=== PATIENT | female | born 1965 | race Caucasian/White ===

== ENCOUNTER → 2019-09-26 | Outpatient (CLI) | payer OTHER, SELFPAY ==
[2019-09-24 11:40] VITALS: BMI 21.9
[2019-10-01 12:11] LABS: Dopamine, Pl <30 pg/mL (0-48); Epinephrine, Pl 37 pg/mL (0-62); Norepinephrine, Pl 336 pg/mL (0-874)
[2019-10-01 13:41] LABS: Aldosterone, Serum 6.9 ng/dL (0.0-30.0); Renin, Plasma 0.249 ng/mL/hr (0.167-5.380)
== END | disposition home or self-care (01) ==
PROVIDERS: Family Provider Family Medicine; PCP Family Medicine; Referring Provider Internal Medicine Cardiovascular Disease; Visit Provider Internal Medicine Cardiovascular Disease
DX: I10 Essential (primary) hypertension (principal)
CPT/HCPCS: 36415; 82088; 82384; 84244

== ENCOUNTER → 2019-10-05 12:45 | Outpatient (CLI) | payer OTHER, SELFPAY ==
[2019-09-24 11:40] VITALS: BMI 21.9
--- NOTE | 2019-10-05 12:47 | ECHOD_ITS ---
Reason For Study: HTN Procedure This was a 2D Doppler, Color Flow transthoracic echocardiogram. Exam performed in department. Left Ventricle Normal LV size. Left ventricular systolic function is normal. The estimated ejection fraction is 65 %. No regional wall motion abnormalities noted. Right Ventricle Normal RV size. Normal systolic function. Atria Normal left atrium. Normal right atrium. Mitral Valve Normal mitral valve. Tricuspid Valve Normal tricuspid valve. Aortic Valve Normal aortic valve. Trisinus/trileaflet aortic valve. Pulmonic Valve Normal pulmonic valve. Great Vessels Normal aortic root. The pulmonary artery is normal size. Normal inferior vena cava. Pericardium/Pleural No pericardial effusion. MMode/2D Measurements & Calculations LVIDd: 4.4 cm IVSd: 1.1 cm Ao root diam: 3.3 cm LVIDs: 1.6 cm LVPWd: 1.2 cm LA dimension: 3.0 cm RVDd: 3.5 cm FS: 63.3 % LAV(MOD-bp): 50.0 ml LA A4 area: 16.8 cm2 RA A4 area: 14.0 cm2 LAV(MOD-bp) Indexed: 31.1 ml/m2 LAV(MOD-sp2): 56.2 ml LAV(MOD-sp4): 44.7 ml Time Measurements MV dec time: 0.20 sec Doppler Measurements & Calculations MV E max rajendra: 84.1 cm/sec Lat Peak E' Rajendra: 10.2 cm/sec Med Peak E' Rajendra: 8.1 cm/sec MV A max rajendra: 49.6 cm/sec E/E' lat: 8.2 E/E' med: 10.4 MV E/A: 1.7 MV V2 max: 82.0 cm/sec MV P1/2t max rajendra: 82.0 cm/sec Ao V2 max: 127.5 cm/sec MV max P.7 mmHg MV P1/2t: 98.6 msec Ao max P.5 mmHg MV V2 mean: 35.1 cm/sec MV dec slope: 243.6 cm/sec2 MV mean P.62 mmHg MVA(P1/2t): 2.2 cm2 MV V2 VTI: 28.3 cm LV V1 max: 124.0 cm/sec PA V2 max: 90.5 cm/sec TR max rajendra: 238.4 cm/sec LV V1 max P.2 mmHg TR max P.7 mmHg Interpretation Summary Normal LV size. Left ventricular systolic function is normal. The estimated ejection fraction is 65 %. Structurally normal valves. Ordering Physician: Kevin Saravia Referring Physician: Kevin Saravia Performed By: Cresencio Whitney RCS
--- NOTE | 2019-10-05 12:47 | CT_ITS ---
STUDY: CT ABDOMEN AND PELVIS WITH CONTRAST REASON FOR EXAM: Female, 54 years old. Severe hypertension. RADIATION DOSAGE (If Supplied By Facility): CTDIvol = ( 15.08 ) mGy, DLP = ( 460.73 ) mGycm TECHNIQUE: Transaxial images were obtained from the dome of the diaphragm to the symphysis pubis without oral contrast. IV/Oral Isovue 300 100mL was administered. Sagittal and coronal images were reconstructed. Individualized dose optimization techniques were used for this CT. COMPARISON: None. FINDINGS: The visualized lung bases are unremarkable. The visualized portions of the heart are within normal limits. Small low-attenuation structure within the right liver lobe measuring 6.5 mm, too small to be adequately characterized and compatible with benign process such as cyst or hemangioma in the absence of known neoplasm. Otherwise normal liver. Normal gallbladder and extrahepatic biliary system. Normal spleen. Normal pancreas. Normal bilateral adrenal glands. Small low-attenuation structure within the lower pole of the right kidney measuring 6 mm, too small to be adequately characterize and statistically consistent with a cyst. Otherwise normal right kidney. Similar structure within the lower pole of the left kidney measuring 6 mm, otherwise normal left kidney. There is thickening of the mucosa at the level of the gastric antrum which may indicate gastritis. This is best visualized in the coronal plane. Normal small intestine. There is increased fecal debris within the colon suggestive of constipation. The appendix is visualized and appears normal. Normal abdominal aorta. Normal inferior vena cava. Normal retroperitoneum. Incompletely distended urinary bladder. The uterus is anteverted otherwise unremarkable. Normal abdominal wall. Mild degenerative disease of the spine, otherwise normal osseous structures. CT/Abdomen/Pelvis WITH Contrast IMPRESSION: Small bilateral renal cysts as described above. Small right liver low-attenuation lesion, most compatible with benign process, remainder of abdominal viscera are unremarkable. Constipation. No signs of bowel obstruction or focal inflammatory process throughout the gastrointestinal tract. Electronically Signed: Marzena Lopez MD at 2:48 EST , Service support ,
== END ==
PROVIDERS: Family Provider Family Medicine; PCP Family Medicine; Referring Provider Internal Medicine Cardiovascular Disease; Visit Provider Internal Medicine Cardiovascular Disease
DX: I10 Essential (primary) hypertension (principal)
CPT/HCPCS: 74177; 93306; Q9967

== ENCOUNTER → 2022-07-01 | Outpatient (CLI) | payer OTHER, SELFPAY ==
[2022-07-01 11:50] LABS: AST(SGOT) 11 U/L (15-37); Alanine Aminotransfer ALT/SGPT 15 U/L (13-56); Albumin, Serum 4.1 g/dL (3.2-5.0); Alkaline Phosphatase 75 U/L (45-117); Anion Gap 4 (5-15); BUN 12 mg/dL (7-18); BUN/Creat Ratio 13.9 RATIO (10-20); Bilirubin, Direct 0.11 mg/dL (0.00-0.30); Calcium,Total 9.4 mg/dL (8.5-10.1); Chloride 110 mmol/L (98-107); Cholesterol 188 mg/dL (200); Creatinine, Serum 0.87 mg/dL (0.55-1.02); EST Glomerular Filtration Rate 72 mL/min (>60); Est Glom Filt Rate - Afr Amer 87 mL/min (>60); Globulin 3.9 g/dL (2.2-4.2); Glucose 95 mg/dL (74-106); High Density Lipoprotein 63 mg/dL; Potassium 3.8 mmol/L (3.5-5.1); Sodium Level 143 mmol/L (136-145); Triglycerides 76 mg/dL; Very Low Density Lipoprotein 15 mg/dL (5-40)
== END | disposition home or self-care (01) ==
PROVIDERS: PCP Family Medicine; Visit Provider Internal Medicine Cardiovascular Disease
DX: I10 Essential (primary) hypertension (principal); E78.00 Pure hypercholesterolemia, unspecified
CPT/HCPCS: 36415; 80048; 80061; 80076

== ENCOUNTER → 2023-06-30 | Outpatient (CLI) | payer OTHER, SELFPAY ==
[2023-06-30 11:59] LABS: AST(SGOT) 15 U/L (15-37); Alanine Aminotransfer ALT/SGPT 17 U/L (13-56); Alkaline Phosphatase 49 U/L (45-117); Bilirubin, Direct 0.17 mg/dL (0.00-0.30); Cholesterol 183 mg/dL (200); Globulin 3.8 g/dL (2.2-4.2); High Density Lipoprotein 64 mg/dL; Protein, Total 7.8 g/dL (6.4-8.2); Triglycerides 50 mg/dL; Very Low Density Lipoprotein 10 mg/dL (5-40)
== END | disposition home or self-care (01) ==
PROVIDERS: PCP Family Medicine; Referring Provider Internal Medicine Cardiovascular Disease; Visit Provider Internal Medicine Cardiovascular Disease
DX: I10 Essential (primary) hypertension (principal); E78.00 Pure hypercholesterolemia, unspecified
CPT/HCPCS: 36415; 80061; 80076

== ENCOUNTER 2024-03-22 11:21 | Inpatient (IN) | payer OTHER, SELFPAY ==
[2024-03-22] VITALS (8 sets, daily range): BP systolic 124–173; BP diastolic 66–90; PULSE 44–86; RESP 14–16; TEMP 36.6–37.4; O2SAT 97–100; BMI 23.3
--- NOTE | 2024-03-22 12:00 | EDS_ITS ---
HPI HPI - GI History of Present Illness Chief Complaint: Abd Pain Narrative Narrative: 58-year-old female presenting with abdominal pain. She describes it as epigastric and left upper quadrant. She states she usually eats plant-based foods and she was at a [employer] party a couple of days ago and had dairy products and meat. She states she notes she has had a stomachache since then. She describes it as mild and she has not taken anything for the pain. She is not nauseous or vomiting. She has not had diarrhea. She is having bowel movements. No fevers or chills. She states at 1 point when it initially started she had a wave in the lower aspect of the left chest which was achy and lasted 10 minutes with no associated symptoms. [facility] Medical History Essential (primary) hypertension Home Medications hydrochlorothiazide 25 mg tablet 25 mg PO DAILY #90 tabs 06/23/23 [Rx Last Taken 03/22/24] lisinopril 20 mg tablet 20 mg PO DAILY #90 tabs 08/22/23 [Rx Last Taken 03/22/24] amlodipine 5 mg tablet 5 mg PO DAILY #90 tabs 08/30/23 [Rx Last Taken 03/22/24] estradiol 10 mcg vaginal tablet (Yuvafem) 10 mcg vaginal .3XW 03/22/24 [History Last Taken 03/20/24] Allergy/AdvReac Type Severity Reaction Status Date / Time No Known Allergies Allergy Verified 03/22/24 11:26 Family History Mother Hypertension Social History Smoking Status: Never smoker alcohol intake: current alcohol intake frequency: holidays/special occasions only ROS ROS ED Constitutional Constitutional ED: Denies chills, fever(s) or sweats Eyes Eyes: Denies blurry vision or change in vision ENT ENT ED: Denies ear pain or sore throat Cardiovascular Cardiovascular: Reports chest pain; Denies palpitations or racing heartbeat Respiratory/Chest Respiratory/Chest: Denies cough, dyspnea or sputum Gastrointestinal Gastrointestinal: Reports abdominal pain; Denies constipation, diarrhea, nausea or vomiting Genitourinary Genitourinary ED: Denies dysuria, hematuria or urinary frequency Musculoskeletal Musculoskeletal: Denies arthralgias, myalgias or neck pain Integumentary Denies abscess, Abrasions or rash Neurologic Neurologic: Denies headache(s), paresthesias or weakness Psychiatric Psychiatric: Denies anxiety, depression, suicidal ideation or suicidal thoughts Endocrine Endocrinology: Denies polydipsia or polyuria EXAM Physical Exam Const Vital Signs: 03/22/24 11:22 03/22/24 13:21 Temperature 98 F Temperature Source Temporal Pulse Rate 58 L 60 Respiratory Rate 14 14 Blood Pressure 144/74 H 136/70 H Blood Pressure Mean 97 92 Pulse Ox 99 97 Oxygen Delivery Method Room Air Room Air Positive well nourished General Appearance ED: NAD; Negative for pallor HEENT Reports moist mucous membranes Eyes PERRL and EOMs intact bilaterally Neck no lymphadenopathy Resp normal respiratory effort and clear to auscultation bilaterally Auscultation: Negative for rales, rhonchi or wheezes Cardio regular rate and regular rhythm Neuro CN's II-XII intact bilaterally, moves all extremities and no sensory deficits noted Sensorium / Orientation: alert Motor Exam: strength 5/5 throughout Psych mental status grossly normal Skin General Skin Exam: Negative for jaundice or pallor MDM MDM MDM Narrative Medical decision making narrative: Patient presenting with mild abdominal pain in the epigastric and left upper quadrant after eating dairy products and wheat which she does not normally do. Denies urinary symptoms. She states she can drink a lot of alcohol that evening. No history of pancreatitis. Patient presenting with right flank pain. Differential includes colitis, diverticulitis, gastritis, pancreatitis, constipation, UTI, pyelonephritis, bowel obstruction, malignancy, dehydration, electrolyte abnormalities. She was also concerned of the wave of chest pain and wanted to get her heart checked out. Will obtain a CBC to assess white blood cell count, hemoglobin, platelets. CMP to assess liver function and renal function, electrolytes, glucose. Lipase to assess for pancreatitis. High- sensitivity troponin EKG to assess for ischemia. Chest x-ray rule out pneumonia. CBC shows normal white blood cell 6.9. Hemoglobin 15.3. Platelets are normal at 216. LFTs are normal. Lipase 2170. Patient still declining any analgesia. Patient does admit to drinking some wine over the weekend but nothing in excess. No history of pancreatitis. We did obtain a CT of the abdomen pelvis with IV contrast which shows a mildly dilated pancreatic duct down to the ampulla of Vater. Discussed the case with Dr. Cuevas who recommended admitting the patient to medicine with a consult to him and obtaining an MRCP. Discussed with the hospitalist for admission. Impression: 1. Acute pancreatitis 2. Dilated pancreatic duct Lab Data Attestation: I reviewed the patient's lab results. Labs: Laboratory Results - last 24 hr 03/22/24 12:00 WBC 6.9 RBC 5.14 Hgb 15.3 H Hct 45.9 MCV 89.3 MCH 29.8 MCHC 33.3 RDW Std Deviation 39.8 RDW Coeff of Dexter 12.3 Plt Count 216 MPV 12.1 H Immature Gran % (Auto) 0.300 Neut % (Auto) 69.1 Lymph % (Auto) 20.1 [place] % (Auto) 8.7 Eos % (Auto) 1.2 Baso % (Auto) 0.6 Absolute Neuts (auto) 4.8 Absolute Lymphs (auto) 1.39 Nucleated RBC % 0 Sodium 141 Potassium 3.4 L Chloride 107 Carbon Dioxide 27.0 Anion Gap 7 BUN 15 Creatinine 0.94 Estim Creat Clear Calc 53.96 Est GFR (MDRD) Af Amer 79 Est GFR (MDRD) Non-Af 65 BUN/Creatinine Ratio 16.0 Glucose 95 Calcium 10.2 H Total Bilirubin 0.50 AST 16 ALT 20 Alkaline Phosphatase 59 Troponin I High Sens 65 H Total Protein 8.6 H Albumin 4.3 Globulin 4.3 H Albumin/Globulin Ratio 1.0 Lipase 2170 H Radiography Diagnostic Testing: Clinical Impression(s) from Imaging Studies Chest X-Ray 03/22/24 12:04 IMPRESSION: Normal x-ray examination of the chest. Electronically Signed: Timothy Guardado MD at 12:32 EDT , Abdomen/Pelvis CT 03/22/24 13:07 IMPRESSION: Stable small bilateral renal cysts. Mildly dilated pancreatic duct down to the level of the ampulla of Vater. No pancreatic masses seen. Moderate amount of fecal material is seen in the colon. Electronically Signed: Timothy Guardado MD at 13:51 EDT , Discharge Plan Triage Chief Complaint: Abd Pain ED Provider: Ajit Olivas Dx/Rx/DC Orders Prescriptions: No Action estradiol [Yuvafem] 10 mcg tablet 10 mcg vaginal .3XW hydrochlorothiazide 25 mg tablet 25 mg PO DAILY Qty: 90 3RF lisinopril 20 mg tablet 20 mg PO DAILY Qty: 90 3RF amlodipine 5 mg tablet 5 mg PO DAILY Qty: 90 3RF Primary Care Provider: Arias Vaughn Referrals: Arias Vaughn MD [Primary Care Provider] -
--- NOTE | 2024-03-22 12:04 | RAD_ITS ---
STUDY: X-RAY CHEST REASON FOR EXAM: Female, 58 years old. Chest pain TECHNIQUE: Single AP portable view of the chest. COMPARISON: None. FINDINGS: The lungs are clear and expanded. There is no demonstrated pleural abnormality. Normal size heart. Normal mediastinum and matt. Normal visualized pulmonary arteries. Normal visualized aortic arch and descending thoracic aorta. Normal visualized thoracic spine. Normal visualized ribs, clavicles, and shoulders. There is no demonstrated abnormality of the visualized soft tissue structures of the upper abdomen. RAD/Chest 1 View (Portable) IMPRESSION: Normal x-ray examination of the chest. Electronically Signed: Timothy Guardado MD at 12:32 EDT ,
[2024-03-22 12:25] LABS: Absolute Lymphocyte Count 1.39 X10^3/uL (0.83-4.51); Absolute Neutrophil Count 4.8 X10^3/uL (2.0-7.7); Basophil# 0.04 X10^3/uL; Basophil% 0.6 % (0-1); Eosinophil# 0.08 X10^3/uL; Eosinophils% 1.2 % (0-5); Hematocrit 45.9 % (37-47); Hemoglobin 15.3 g/dL (12.0-15.0); Lymphocyte # 1.39 X10^3/ul (0.83-4.51); Lymphocyte % 20.1 % (19-41); Mean Corp Hgb Conc 33.3 g/dL (32-36); Mean Corpuscular Hgb 29.8 pg (27.0-32.0); Mean Corpuscular Volume 89.3 fL (81-99); Mean Platelet Vol. 12.1 fl (6.2-12.0); Monocyte% 8.7 % (0-10); NRBC Flagged by Analyzer 0 % (0-5); Neutrophil # 4.79 X10^3/uL (2.7-7.7); Neutrophil % 69.1 % (47-70); Platelet Count 216 K/mm3 (150-450); RBC Distribution Width CV 12.3 % (11.6-14.6); RBC Distribution Width SD 39.8 fl (35.1-43.9); Red Blood Count 5.14 M/mm3 (4.2-5.4); White Blood Count 6.9 K/mm3 (4.4-11.0)
[2024-03-22 12:41] LABS: AST(SGOT) 16 U/L (15-37); Alanine Aminotransfer ALT/SGPT 20 U/L (13-56); Albumin, Serum 4.3 g/dL (3.2-5.0); Alkaline Phosphatase 59 U/L (45-117); Anion Gap 7 (5-15); BUN 15 mg/dL (7-18); Calcium,Total 10.2 mg/dL (8.5-10.1); Chloride 107 mmol/L (98-107); Creatinine, Serum 0.94 mg/dL (0.55-1.02); EST Glomerular Filtration Rate 65 mL/min (>60); Est Glom Filt Rate - Afr Amer 79 mL/min (>60); Estimated Creatinine Clearance 53.96 ml/min; Globulin 4.3 g/dL (2.2-4.2); Glucose 95 mg/dL (74-106); Lipase 2170 U/L (13-75); Potassium 3.4 mmol/L (3.5-5.1); Protein, Total 8.6 g/dL (6.4-8.2); Sodium Level 141 mmol/L (136-145); Troponin-I HS 65 pg/mL (3.0-54.0)
--- NOTE | 2024-03-22 13:07 | CT_ITS ---
STUDY: CT ABDOMEN AND PELVIS WITH CONTRAST REASON FOR EXAM: Female, 58 years old. Pancreatitis. Left upper abdominal pain. RADIATION DOSAGE (If Supplied By Facility): CTDIvol = ( 10.21 ) mGy, DLP = ( 257.49 ) mGycm TECHNIQUE: Transaxial images were obtained from the dome of the diaphragm to the symphysis pubis without oral contrast. IV 100mL Isovue-300 was administered. Sagittal and coronal images were reconstructed. Individualized dose optimization techniques were used for this CT. COMPARISON: Comparison is made with prior examination dated October 05, 2019. FINDINGS: Stable increased linear markings at the left lung base suggestive of linear scarring. The visualized portions of the heart are within normal limits. Normal liver. Normal gallbladder and extrahepatic biliary system. Normal spleen. Mildly dilated pancreatic duct. This extends down into the region of the ampulla of Vater. No definite pancreatic mass is seen. Normal bilateral adrenal glands. There is a 1 cm cyst in the lower pole of the right kidney. There is a 7.4 mm cyst in the anterior midportion of the left kidney. Normal visualized stomach. Normal small intestine. Moderate amount of fecal material is seen in the colon. The appendix is visualized and appears normal. Normal abdominal aorta. Normal inferior vena cava. Normal retroperitoneum. Normal urinary bladder. Increased vascularity is seen surrounding the uterus. There is a small umbilical hernia containing fat. Normal osseous structures. CT/Abdomen/Pelvis W IV Cont ONLY IMPRESSION: Stable small bilateral renal cysts. Mildly dilated pancreatic duct down to the level of the ampulla of Vater. No pancreatic masses seen. Moderate amount of fecal material is seen in the colon. Electronically Signed: Timothy Guardado MD at 13:51 EDT ,
--- NOTE | 2024-03-22 14:30 | PCM.HP.STD ---
HPI - General General Date of Admission: 03/22/24 Date of Service: 03/22/24 Chief Complaint: Abdominal pain HPI Narrative BENI GREENWOOD, is a 58 F who presented to [facility] ED on 03/22/2024 with worsening abdominal pain. Was found on labs to have a significantly elevated lipase and CT abdomen pelvis showed a mildly dilated pancreatic duct concerning for pancreatitis. Hospitalist was contacted for admission. Saw patient at bedside in the ED, present. Patient was sitting up comfortably in bed, conversing normally, in no acute distress. She reported very mild abdominal pain currently, moderately improved from when she arrived. She states the pain medication was helpful in relieving her pain. Patient lives at home with her and is generally in good health. She has no previous history of pancreatitis. Has no known history of cholelithiasis. However, her mother and sister both had gallstones and had their gallbladders removed. Patient is a vegan and generally eats very healthy. She drinks occasionally on the weekends but not regularly. Patient states she has intermittently noticed some abdominal pain/cramping over the past several weeks. The pain has generally been intermittent and will go away on its own. She has not been able to identify any foods or drink that seem to coincide with the pain. She states that this pain has now seem to last for a few days. The pain is primarily in the epigastric to left upper quadrants. Aside from the pain she denies any other significant symptoms. Denies any fevers, chills, nausea, vomiting, diarrhea. Has been having fairly normal bowel movements. Vitals in ED notable for borderline sinus bradycardia, mild hypertension, otherwise afebrile and satting well on room air. Labs notable for WBC count 6, hemoglobin 15, platelets 216, potassium 3.4, BMP otherwise benign, LFTs normal. Lipase 2170. Total cholesterol 191, LDL 116, HDL 62, triglycerides 80. Troponin 65, repeat pending. CT abdomen pelvis showed mildly dilated pancreatic duct down to the level of the ampulla Vater, no pancreatic masses seen, normal liver, normal gallbladder and extrahepatic biliary system, moderate amount of fecal material seen in colon. Chest x-ray was unremarkable. Patient will be admitted for further management. [facility], [facility] Medical History (Updated 03/22/24 @ 17:[address] Olsen Friend, DO) Essential (primary) hypertension Home Medications hydrochlorothiazide 25 mg tablet 25 mg PO DAILY #90 tabs 06/23/23 [Rx Last Taken 03/22/24] lisinopril 20 mg tablet 20 mg PO DAILY #90 tabs 08/22/23 [Rx Last Taken 03/22/24] amlodipine 5 mg tablet 5 mg PO DAILY #90 tabs 08/30/23 [Rx Last Taken 03/22/24] estradiol 10 mcg vaginal tablet (Yuvafem) 10 mcg vaginal .3XW 03/22/24 [History Last Taken 03/20/24] Allergy/AdvReac Type Severity Reaction Status Date / Time No Known Allergies Allergy Verified 03/22/24 11:26 Family History Mother Hypertension Social History Smoking Status: Never smoker alcohol intake: current alcohol intake frequency: holidays/special occasions only ROS Constitutional Constitutional: Denies chills, fatigue, fever(s) or weakness Cardiovascular Cardiovascular: Denies chest pain Respiratory/Chest Respiratory/Chest: Denies shortness of breath at rest, shortness of breath with exertion or wheezing Gastrointestinal Gastrointestinal: Reports abdominal pain; Denies constipation, diarrhea, dyspepsia, hematochezia, loose stools, melena, nausea or vomiting Genitourinary Genitourinary: Denies dysuria Musculoskeletal Musculoskeletal: Denies arthralgias, back pain or myalgias Vital Signs Vital Signs Vital Signs: 03/22/24 11:22 03/22/24 13:21 Temperature 98 F Temperature Source Temporal Pulse Rate 58 L 60 Respiratory Rate 14 14 Blood Pressure 144/74 H 136/70 H Blood Pressure Mean 97 92 Pulse Ox 99 97 Oxygen Delivery Method Room Air Room Air Weight Weight: 59.6 kg Body Mass Index (BMI) 23.3 Physical Exam Const alert, oriented x3, no apparent distress, average body habitus, healthy appearing and well nourished Constitutional Narrative: Pleasant middle-age female, sitting up comfortably in bed, conversing normally, in no acute distress. General Appearance: cooperative, comfortable, well kempt and well developed HEENT normocephalic, head/scalp atraumatic, hearing grossly normal bilaterally, nasal mucous membranes and turbinates normal and moist oral mucous membranes Eyes PERRL, EOMs intact bilaterally and conjunctivae normal Neck full ROM Chest inspection of chest normal Resp normal respiratory effort, normal air movement, no use of accessory muscles and clear to auscultation bilaterally Cardio regular rate, regular rhythm, no murmurs and peripheral pulses 2+ throughout GI GI Narrative: Very mild tenderness to palpation in epigastric area. Otherwise abdomen soft, nondistended. No rebound tenderness or guarding noted. Back/Spine normal ROM Extremity normal to inspection, full ROM and no pedal edema Skin no rashes or lesions noted Neuro moves all extremities and no focal motor deficits Speech: speech normal Psych mental status grossly normal Results Lab / Micro Data 03/22/24 12:00 03/22/24 12:00 Labs: Laboratory Results - last 24 hr 03/22/24 12:00: WBC 6.9, RBC 5.14, Hgb 15.3 H, Hct 45.9, MCV 89.3, MCH 29.8, MCHC 33.3, RDW Std Deviation 39.8, RDW Coeff of Dexter 12.3, Plt Count 216, MPV 12.1 H, Immature Gran % (Auto) 0.300, Neut % (Auto) 69.1, Lymph % (Auto) 20.1, [place] % (Auto) 8.7, Eos % (Auto) 1.2, Baso % (Auto) 0.6, Absolute Neuts (auto) 4.8, Absolute Lymphs (auto) 1.39, Nucleated RBC % 0, Sodium 141, Potassium 3.4 L, Chloride 107, Carbon Dioxide 27.0, Anion Gap 7, BUN 15, Creatinine 0.94, Estim Creat Clear Calc 53.96, Est GFR (MDRD) Af Amer 79, Est GFR (MDRD) Non-Af 65, BUN/Creatinine Ratio 16.0, Glucose 95, Calcium 10.2 H, Total Bilirubin 0.50, AST 16, ALT 20, Alkaline Phosphatase 59, Troponin I High Sens 65 H, Total Protein 8.6 H, Albumin 4.3, Globulin 4.3 H, Albumin/Globulin Ratio 1.0, Lipase 2170 H Imaging Radiology Impression Chest X-Ray 03/22/24 12:04 IMPRESSION: Normal x-ray examination of the chest. Electronically Signed: Timothy Guardado MD at 12:32 EDT , Abdomen/Pelvis CT 03/22/24 13:07 IMPRESSION: Stable small bilateral renal cysts. Mildly dilated pancreatic duct down to the level of the ampulla of Vater. No pancreatic masses seen. Moderate amount of fecal material is seen in the colon. Electronically Signed: Timothy Guardado MD at 13:51 EDT , Assessment & Plan Assessment/Plan (1) Pancreatitis: PLAN: Plan Patient is a 58-year-old female who presented [facility] ED on 03/22/2024 with abdominal pain. 1. Acute pancreatitis ? Admit under inpatient status to [facility]. GI consulted. MRCP showed pancreatic ductal dilatation in the body and tail of pancreas with narrowing of distal pancreatic duct; per radiology, findings may be secondary to extrinsic compression from pancreatitis, pancreatic mass or pancreatic ductal mass. Liver gallbladder with no abnormalities. N.p.o. at midnight for likely ERCP tomorrow. Okay to continue IV Zosyn for now. Continue IV maintenance fluids at low rate. Pain control with p.o. oxycodone and IV Dilaudid as needed. 2. Elevated troponin ? Troponin 65 in the ED, repeat 79. EKG pending. Suspect demand ischemia from acute pancreatitis as noted above. Follow-up EKG findings. 3. Hypertension ? Normotensive in the ED. Continue home amlodipine, hold home lisinopril and hydrochlorothiazide for now, restart as needed. DVT prophylaxis: Lovenox CODE STATUS: Full code, verified Expected disposition: Home, 2 to 3 days Total clinical time spent by myself addressing the patient's medical issues, reviewing all the data, and collaborating with patient's care team: 55 minutes. Charges/Coding Visit Charges Inpatient E&M: 46540 Init Hosp L2
--- NOTE | 2024-03-22 14:38 | MRI_ITS ---
STUDY: MR CHOLANGIOPANCREATOGRAPHY (MRCP) REASON FOR EXAM: Female, 58 years old. eval for gallstone pancreatitis TECHNIQUE: Standard MRCP technique was utilized. 3-D reconstructions were performed. COMPARISON: CT 03/22/2024 FINDINGS: Gall Bladder: Normal with no distention or demonstrated fixed intraluminal filling defect. Cystic duct: Normal with no demonstrated fixed filling defect. Intrahepatic ducts: Normal visualized intrahepatic ducts with no demonstrated fixed filling defect, dilation or stricture. Common hepatic duct: Normal with no demonstrated fixed filling defect, dilation or stricture. Common bile duct: Normal with no demonstrated fixed filling defect, dilation or stricture. Pancreatic duct: There is mild dilatation of the pancreatic duct within the body and tail of the pancreas. Within the head of the pancreas there is diffuse narrowing of the distal pancreatic duct. At the transition between the narrowed and dilated portions of the pancreatic duct there is 8 mm round focal dilatation. MRI/MRCP Abdomen without Contrast IMPRESSION: Pancreatic ductal dilatation in the body and tail the pancreas with narrowing of the distal pancreatic duct in the head of the pancreas with 8 mm round dilated area at the transition point. Findings may be secondary to extrinsic compression from pancreatitis, pancreatic mass, or pancreatic ductal mass. ERCP may be useful. Electronically Signed: Rigoberto Walton MD at 20:18 EDT ,
[2024-03-22] MEDS: Lactated Ringers 1,000 ML 999 ML IV (14:53)
[2024-03-22 15:36] LABS: Magnesium 2.3 mg/dL (1.6-2.6)
[2024-03-22] MEDS: Potassium Chloride Oral Tablet 20 MEQ 40 MEQ PO (15:59)
[2024-03-22] MEDS: Piperacil/Tazobactam 3.375 GM in 0.9% Normal Saline (50mL MB+) 50 ML IV ×2 (16:03→22:05)
[2024-03-22 17:48] LABS: Cholesterol 191 mg/dL (200); High Density Lipoprotein 62 mg/dL; Triglycerides 64 mg/dL; Very Low Density Lipoprotein 13 mg/dL (5-40)
--- NOTE | 2024-03-22 17:52 | EX.PCM.CON.G ---
HPI Consult Data Date of Consult: 03/22/24 HPI Narrative Reason for Consultation: Pancreatitis HPI Narrative: BENI GREENWOOD, is a 58-year-old female presenting with abdominal pain. She describes it as epigastric and left upper quadrant. She states she usually eats plant-based foods and she was at a constitution party a couple of days ago and had dairy products and meat. She states she notes she has had a stomachache since then. She describes it as mild and she has not taken anything for the pain. She is not nauseous or vomiting. She has not had diarrhea. She is having bowel movements. No fevers or chills. She states at 1 point when it initially started she had a wave in the lower aspect of the left chest which was achy and lasted 10 minutes with no associated symptoms. Laboratory analysis displays : That she is hemoconcentrated with a hemoglobin of 15.3 Calcium 10.2 H, Magnesium 2.3, Total Bilirubin 0.50, AST 16, ALT 20, Alkaline Phosphatase 59, Troponin I High Sens 65 H, Total Protein 8.6 H, Albumin 4.3, Globulin 4.3 H, Albumin/Globulin Ratio 1.0, Triglycerides 64, Cholesterol 191, LDL Cholesterol 116, VLDL Cholesterol 13, HDL Cholesterol 62, Lipase [address] scan abdomen pelvis displays: Stable small bilateral renal cysts. Mildly dilated pancreatic duct down to the level of the ampulla of Vater. No pancreatic masses seen. Moderate amount of fecal material is seen in the colon. [facility] Medical History (Updated 03/22/24 @ 17:[address] Olsen Friend, DO) Essential (primary) hypertension Home Medications hydrochlorothiazide 25 mg tablet 25 mg PO DAILY #90 tabs 06/23/23 [Rx Last Taken 03/22/24] lisinopril 20 mg tablet 20 mg PO DAILY #90 tabs 08/22/23 [Rx Last Taken 03/22/24] amlodipine 5 mg tablet 5 mg PO DAILY #90 tabs 08/30/23 [Rx Last Taken 03/22/24] estradiol 10 mcg vaginal tablet (Yuvafem) 10 mcg vaginal .3XW 03/22/24 [History Last Taken 03/20/24] Allergy/AdvReac Type Severity Reaction Status Date / Time No Known Allergies Allergy Verified 03/22/24 11:26 Family History Mother Hypertension Social History Smoking Status: Never smoker alcohol intake: current alcohol intake frequency: holidays/special occasions only ROS Review of Systems ROS Unobtainable: other Constitutional Constitutional: Denies fatigue, fever(s), poor appetite, weight gain or weight loss ENT HEENT: Denies mouth lesions Cardiovascular Cardiovascular: Denies abdominal bloating, abdominal edema or abdominal pain Respiratory/Chest Respiratory/Chest: Denies change in mental status, change in phlegm color, chest congestion or chest tightness Gastrointestinal Gastrointestinal: Denies belching, bloating, change in bowel habits, change in stool character, chewing difficulty, coffee ground emesis, constipation, cramping, diarrhea, dyspepsia, dysphagia, early satiety, excessive flatus, fecal incontinence, heartburn, hematemesis, hematochezia, hemorrhoids, loose stools, melena, nausea, odynophagia, rectal bleeding, tenesmus, vomiting or weight changes Genitourinary Genitourinary: Denies abdominal discomfort, burning urination or itching Musculoskeletal Musculoskeletal: Reports as per HPI; Denies muscle weakness or myalgias Integumentary Integumentary: Denies jaundice Neurologic Neurologic: Denies lack of coordination or weakness Psychiatric Psychiatric: Denies confusion, depression, memory loss, mood swings, paranoia or suicidal ideation Endocrine Endocrinology: Denies systems reviewed and no addt'l complaints, except as documented Hematologic/Lymphatic Hematologic/Lymphatic: Denies anemia, easy bleeding, easy bruising or lymphadenopathy Allergic/Immunologic Allergic/Immunologic: Denies systems reviewed and no addt'l complaints, except as documented Physical Exam Const alert, oriented x3, no apparent distress, healthy appearing and well nourished General Appearance: cooperative, comfortable, well kempt and well developed Orientation / Consciousness: awake and oriented to person HEENT Head and Scalp: normocephalic and atraumatic Face and Sinus: normal facial exam Mouth: oral and palatal mucosa normal Eyes General Eye: normal appearance of both eyes Neck full ROM Lymph Lymphatic: no lymphadenopathy noted Chest inspection of chest normal Resp normal respiratory effort and no use of accessory muscles Cardio regular rate and regular rhythm GI normal to inspection, nondistended, normoactive bowel sounds, soft to palpation, non-tender, non-distended and no masses Auscultation: normoactive bowel sounds Palpation: soft Percussion: normal to percussion Rectal Exam: visual inspection normal and normal sphincter tone no CVA tenderness Back/Spine no CVA tenderness and normal ROM Extremity normal to inspection Peripheral Pulses: Yes pulses 2+ throughout Skin no rashes or lesions noted General Skin Exam: no breakdown, elasticity normal and turgor normal Neuro oriented x3 Motor Exam: strength 5/5 throughout Psych mental status grossly normal Appearance: grossly normal Attitude: calm Activity / Motor Behavior: appropriate eye contact Speech: normal speech Thought Process: normal thought process Thought Content: normal thought content Attention / Concentration: attention grossly intact Memory / Cognition: memory grossly intact Insight: insight good Judgement: judgement good Lab / Micro Data 03/22/24 12:00 03/22/24 12:00 Labs: Laboratory Results - last 24 hr 03/22/24 12:00: WBC 6.9, RBC 5.14, Hgb 15.3 H, Hct 45.9, MCV 89.3, MCH 29.8, MCHC 33.3, RDW Std Deviation 39.8, RDW Coeff of Dexter 12.3, Plt Count 216, MPV 12.1 H, Immature Gran % (Auto) 0.300, Neut % (Auto) 69.1, Lymph % (Auto) 20.1, [place] % (Auto) 8.7, Eos % (Auto) 1.2, Baso % (Auto) 0.6, Absolute Neuts (auto) 4.8, Absolute Lymphs (auto) 1.39, Nucleated RBC % 0, Sodium 141, Potassium 3.4 L, Chloride 107, Carbon Dioxide 27.0, Anion Gap 7, BUN 15, Creatinine 0.94, Estim Creat Clear Calc 53.96, Est GFR (MDRD) Af Amer 79, Est GFR (MDRD) Non-Af 65, BUN/Creatinine Ratio 16.0, Glucose 95, Calcium 10.2 H, Magnesium 2.3, Total Bilirubin 0.50, AST 16, ALT 20, Alkaline Phosphatase 59, Troponin I High Sens 65 H, Total Protein 8.6 H, Albumin 4.3, Globulin 4.3 H, Albumin/Globulin Ratio 1.0, Triglycerides 64, Cholesterol 191, LDL Cholesterol 116, VLDL Cholesterol 13, HDL Cholesterol 62, Lipase 2170 H Imaging Radiology Impression Chest X-Ray 03/22/24 12:04 IMPRESSION: Normal x-ray examination of the chest. Electronically Signed: Timothy Guardado MD at 12:32 EDT , Abdomen/Pelvis CT 03/22/24 13:07 IMPRESSION: Stable small bilateral renal cysts. Mildly dilated pancreatic duct down to the level of the ampulla of Vater. No pancreatic masses seen. Moderate amount of fecal material is seen in the colon. Electronically Signed: Timothy Guardado MD at 13:51 EDT , Assessment & Plan Assessment/Plan (1) Pancreatitis: PLAN: 58-year-old with only essential hypertension on amlodipine, hydrochlorothiazide and lisinopril presents for evaluation of abdominal pain. She discovered to have hyperlipasemia without clear signs of pancreatitis on imaging. She was discovered to have dilated pancreatic duct on imaging. A dilated pancreatic duct?can arise from benign or malignant disease or can be a variant of normal in the right clinical setting. Dilated pancreatic ducts can arise from solid or cystic pancreatic tumors and, in the right setting, may warrant endoscopic evaluation and therapy, including stenting and dilation. Typically you see isolated dilated pancreatic duct without dilation of the common bile duct in the setting of pancreatic divisum, isolated pancreatic stone, lesion at the ampulla. It can be early sign of malignancy in the setting of double duct sign. There is no presence of nodules seen in around the pancreas which would be a bad sign. She does need an MRCP and a CA 19-9 along with celiac studies, IgG4, triglyceride level. Charges/Coding Visit Charges Inpatient E&M: 26347 Init Hosp L3
[2024-03-22] MEDS: LORazepam 0.5 MG Tablet PO (17:54)
[2024-03-22 18:52] LABS: Ferritin 71 ng/mL (8-252); Iron 95 ug/dL (50-170); Iron Binding Capacity,Total 325 ug/dL (250-450); LDH 158 U/L (84-246); PERCENT IRON SATURATION 29.2 % (15.0-55.0); Triglycerides 80 mg/dL
[2024-03-22] MEDS: 0.9% Normal Saline (250mL Bag) 250 ML 15 ML IV (22:05)
[2024-03-22] MEDS: Lactated Ringers 1,000 ML 75 ML IV (22:05)
[2024-03-22] MEDS: Senna Tablet 1 TABLET PO (22:13)
[2024-03-22] MEDS: MELATONIN 3 MG TABLET PO (22:32)
[2024-03-22] MEDS: Acetaminophen 325 MG Tablet 650 MG PO (22:32)
[2024-03-22 23:20] LABS: Troponin-I HS 79 pg/mL (3.0-54.0)
[2024-03-23 04:15] VITALS: BP 112/64; PULSE 42; RESP 16; TEMP 36.7; O2SAT 97
[2024-03-23] MEDS: Piperacil/Tazobactam 3.375 GM in 0.9% Normal Saline (50mL MB+) 50 ML IV ×3 (05:36→22:08)
[2024-03-23 07:47] LABS: Hemoglobin 13.1 g/dL (12.0-15.0); Mean Corp Hgb Conc 32.8 g/dL (32-36); Mean Corpuscular Hgb 29.6 pg (27.0-32.0); Mean Corpuscular Volume 90.5 fL (81-99); Mean Platelet Vol. 11.7 fl (6.2-12.0); Platelet Count 182 K/mm3 (150-450); RBC Distribution Width CV 12.4 % (11.6-14.6); RBC Distribution Width SD 40.9 fl (35.1-43.9); Red Blood Count 4.42 M/mm3 (4.2-5.4); White Blood Count 5.3 K/mm3 (4.4-11.0)
[2024-03-23 08:09] VITALS: BP 123/59; PULSE 45; RESP 16; TEMP 36.7; O2SAT 99; BMI 23.3
[2024-03-23 08:29] LABS: ALB/GLOB Ratio 0.9 RATIO (0.9-2.4); AST(SGOT) 19 U/L (15-37); Alanine Aminotransfer ALT/SGPT 16 U/L (13-56); Albumin, Serum 3.4 g/dL (3.2-5.0); Alkaline Phosphatase 55 U/L (45-117); Anion Gap 6 (5-15); BUN 16 mg/dL (7-18); BUN/Creat Ratio 19.7 RATIO (10-20); Calcium,Total 9.3 mg/dL (8.5-10.1); Chloride 113 mmol/L (98-107); Creatinine, Serum 0.81 mg/dL (0.55-1.02); EST Glomerular Filtration Rate 77 mL/min (>60); Est Glom Filt Rate - Afr Amer 93 mL/min (>60); Estimated Creatinine Clearance 62.62 ml/min; Globulin 3.6 g/dL (2.2-4.2); Glucose 87 mg/dL (74-106); Potassium 3.5 mmol/L (3.5-5.1); Sodium Level 143 mmol/L (136-145)
[2024-03-23] MEDS: Lactated Ringers 1,000 ML 75 ML IV (11:01)
--- NOTE | 2024-03-23 11:33 | PN.HOSP_ITS ---
Subjective Subjective Still with epigastric pain awaiting ERCP Objective Data Objective Data Vital Signs: Vital Signs Temp Pulse Resp BP Pulse Ox O2 Del Method 98.1 F 45 L 16 123/59 H 99 Room Air 03/23/24 08:09 03/23/24 08:09 03/23/24 08:09 03/23/24 08:09 03/23/24 08:09 03/23/24 08:09 Oxygen Delivery Method Room Air Weight: 131 lb 6.328 oz Body Mass Index (BMI) 23.3 Intake & Output: Intake and Output for Last 24 Hours 03/22/24 03/23/24 03/24/24 03:59 03:59 03:59 Intake Total 1300 / 1300 1072.75 / 1072.75 Balance 1300 / 1300 1072.75 / 1072.75 Lab / Micro Data 03/23/24 07:20 03/23/24 07:20 Labs: Laboratory Results - last 24 hr 03/22/24 12:00: WBC 6.9, RBC 5.14, Hgb 15.3 H, Hct 45.9, MCV 89.3, MCH 29.8, MCHC 33.3, RDW Std Deviation 39.8, RDW Coeff of Dexter 12.3, Plt Count 216, MPV 12.1 H, Immature Gran % (Auto) 0.300, Neut % (Auto) 69.1, Lymph % (Auto) 20.1, [place] % (Auto) 8.7, Eos % (Auto) 1.2, Baso % (Auto) 0.6, Absolute Neuts (auto) 4.8, Absolute Lymphs (auto) 1.39, Nucleated RBC % 0, Sodium 141, Potassium 3.4 L , Chloride 107, Carbon Dioxide 27.0, Anion Gap 7, BUN 15, Creatinine 0.94, Estim Creat Clear Calc 53.96, Est GFR (MDRD) Af Amer 79, Est GFR (MDRD) Non-Af 65, BUN/Creatinine Ratio 16.0, Glucose 95, Calcium 10.2 H, Magnesium 2.3, Iron 95, TIBC 325, Iron Saturation 29.2, Ferritin 71, Total Bilirubin 0.50, AST 16, ALT 20, Alkaline Phosphatase 59, Lactate Dehydrogenase 158, Troponin I High Sens 65 H, Total Protein 8.6 H, Albumin 4.3, Globulin 4.3 H, Albumin/Globulin Ratio 1.0, Triglycerides 64 03/22/24 12:00: Triglycerides 80, Cholesterol 191, LDL Cholesterol 116, VLDL Cholesterol 13, HDL Cholesterol 62, Lipase 2170 H 03/22/24 22:53: Troponin I High Sens 79 H 03/23/24 07:20: WBC 5.3, RBC 4.42, Hgb 13.1, Hct 40.0, MCV 90.5, MCH 29.6, MCHC 32.8, RDW Std Deviation 40.9, RDW Coeff of Dexter 12.4, Plt Count 182, MPV 11.7, Sodium 143, Potassium 3.5, Chloride 113 H, Carbon Dioxide 24.0, Anion Gap 6, BUN 16, Creatinine 0.81, Estim Creat Clear Calc 62.62, Est GFR (MDRD) Af Amer 93, Est GFR (MDRD) Non-Af 77, BUN/Creatinine Ratio 19.7, Glucose 87, Calcium 9.3, Total Bilirubin 0.80, AST 19, ALT 16, Alkaline Phosphatase 55, Total Protein 7.0, Albumin 3.4, Globulin 3.6, Albumin/Globulin Ratio 0.9 Radiography Diagnostic Testing: Radiology Impression Chest X-Ray 03/22/24 12:04 IMPRESSION: Normal x-ray examination of the chest. Electronically Signed: Timothy Guardado MD at 12:32 EDT , Abdomen/Pelvis CT 03/22/24 13:07 IMPRESSION: Stable small bilateral renal cysts. Mildly dilated pancreatic duct down to the level of the ampulla of Vater. No pancreatic masses seen. Moderate amount of fecal material is seen in the colon. Electronically Signed: Timothy Guardado MD at 13:51 EDT , MRCP 03/22/24 14:38 IMPRESSION: Pancreatic ductal dilatation in the body and tail the pancreas with narrowing of the distal pancreatic duct in the head of the pancreas with 8 mm round dilated area at the transition point. Findings may be secondary to extrinsic compression from pancreatitis, pancreatic mass, or pancreatic ductal mass. ERCP may be useful. Electronically Signed: Rigoberto Walton MD at 20:18 EDT , Physical Exam Narrative General: Alert, Oriented x3, Cooperative, No apparent distress HEENT: Atraumatic, PERRLA, EOMI, Normocephalic Oral: Moist Mucosa Neck: Supple, No JVD Lungs: Clear to auscultation, Normal air movement, No rhonchi, No wheeze, No rales Cardiovascular: Regular rate, Regular Rhythm, Normal S1, Normal S2, No murmurs Abdomen: Soft, epigastric tenderness, Non-Distended, No Hepato-splenomegaly Extremities: No edema, Capillary Refill Less than 3 Seconds Skin: No rashes, No breakdown Musculoskeletal: No Tenderness to Palpation of Joints or Extremities Neurological: No focal neurological deficits, Motor Exam 5/5 strength throughout, Sensory exam intact to light touch and pain Psych/Mental Status: Normal Affect, Appropriate Assessment & Plan Assessment/Plan (1) Pancreatitis: PLAN: Plan 1. Acute pancreatitis ? Unclear as to the etiology at the moment ? MRI demonstrates possible extrinsic compression versus intrinsic blockage of the pancreatic duct ? Appreciate gastroenterology's assistance ? Plan for ERCP ? Will continue with Zosyn for now though no signs of infection so could likely discontinue in the next 24 hours 2. Essential HTN ? Can continue with her home medications, will hold her lisinopril and hydrochlorothiazide for now ? Will monitor make adjustments as necessary ? She did have a slight elevation in her troponin to 79, not very significant and she is not complaining of any chest pain DVT: Lovenox Charges/Coding Visit Charges Inpatient E&M: 03592 Subs Hosp L2
--- NOTE | 2024-03-23 13:25 | CASEMGMT ---
RN?CM?[employer]ERS?CM?to room to meet with patient for initial transition planning/care coordination?assessment.?RN?CM?introduced self and role at [facility].? Pt voices understanding and consents to?assessment?at this time.? Pt resting in bed in no distress at this time.? Pt is A/O at this time and answers all questions appropriately.?? Care providers, pharmacy, and demographics verified/updated at this time. PCP: Dr Vaughn Specialists: Dr Saravia-cardiology, Dr Allred-INFORMATION OPERATOR Preferred Pharmacy: [facility] Insurance:[employer] Prescription Benefit:?yes Living Will/HPOA:?Pt states has LW and HCPOA, who is her . RN CM advised for documents to be brought in to place on pt's chart. LNOK: , Bree[place]. 3 children Living Arrangements: Lives w/her . Independent. Transportation:?Pt states drives self and states no transportation concerns at this time.? also drives. DME: ? Denies using any DME and denies needs.? HHC/SNF: No hx of either. No needs identified. Pt wishes to return home and states has no concerns with going home at time of discharge.? Advised pt to ask for?CM?if any further questions/concerns/needs arise.? Voices understanding. PLAN:??Home Latonya FERRELLN?RN?CM
[2024-03-23 15:57] VITALS: BP 126/68; PULSE 58; RESP 16; TEMP 36.9; O2SAT 97
[2024-03-23 20:31] VITALS: BP 135/69; PULSE 57; RESP 15; TEMP 36.5; O2SAT 97
[2024-03-23] MEDS: Acetaminophen 325 MG Tablet 650 MG PO (20:37)
[2024-03-23 21:00] VITALS: RESP 15
--- NOTE | 2024-03-23 21:12 | PN.GI_ITS ---
Subjective Subjective Patient is with is at the bedside and her daughter who is a nurse practitioner who works in neurology at [facility]. She is not having any pain at this time. She has not tried to eat anything yet. Objective Data Objective Data Vital Signs: Vital Signs Temp Pulse Resp BP Pulse Ox O2 Del Method 97.7 F L 57 L 15 135/69 H 97 Room Air 03/23/24 20:31 03/23/24 20:31 03/23/24 20:31 03/23/24 20:31 03/23/24 20:31 03/23/24 20:31 Oxygen Delivery Method Room Air Weight: 131 lb 6.328 oz Body Mass Index (BMI) 23.3 Intake & Output: Intake and Output for Last 24 Hours 03/21/24 03/22/24 03/23/24 23:59 23:59 23:59 Intake Total 1250 / 1250 1172.75 / 1172.75 Balance 1250 / 1250 1172.75 / 1172.75 Lab / Micro Data 03/23/24 07:20 03/23/24 07:20 Labs: Laboratory Results - last 24 hr 03/22/24 22:53: Troponin I High Sens 79 H 03/23/24 07:20: WBC 5.3, RBC 4.42, Hgb 13.1, Hct 40.0, MCV 90.5, MCH 29.6, MCHC 32.8, RDW Std Deviation 40.9, RDW Coeff of Dexter 12.4, Plt Count 182, MPV 11.7, Sodium 143, Potassium 3.5, Chloride 113 H, Carbon Dioxide 24.0, Anion Gap 6, BUN 16, Creatinine 0.81, Estim Creat Clear Calc 62.62, Est GFR (MDRD) Af Amer 93, Est GFR (MDRD) Non-Af 77, BUN/Creatinine Ratio 19.7, Glucose 87, Calcium 9.3, Total Bilirubin 0.80, AST 19, ALT 16, Alkaline Phosphatase 55, Total Protein 7.0, Albumin 3.4, Globulin 3.6, Albumin/Globulin Ratio 0.9 Physical Exam Narrative General: Alert, Oriented x3, Cooperative, No apparent distress HEENT: Atraumatic, PERRLA, EOMI, Normocephalic Oral: Moist Mucosa Neck: Supple, No JVD Lungs: Clear to auscultation, Normal air movement, No rhonchi, No wheeze, No rales Cardiovascular: Regular rate, Regular Rhythm, Normal S1, Normal S2, No murmurs Abdomen: Soft, epigastric tenderness, Non-Distended, No Hepato-splenomegaly Extremities: No edema, Capillary Refill Less than 3 Seconds Skin: No rashes, No breakdown Musculoskeletal: No Tenderness to Palpation of Joints or Extremities Neurological: No focal neurological deficits, Motor Exam 5/5 strength t hroughout, Sensory exam intact to light touch and pain Psych/Mental Status: Normal Affect, Appropriate Assessment & Plan Assessment/Plan (1) Pancreatitis: PLAN: 58-year-old with only essential hypertension on amlodipine, hyd rochlorothiazide and lisinopril presents for evaluation of abdominal pain. She discovered to have hyperlipasemia without clear signs of pancreatitis on imaging. She was discovered to have dilated pancreatic duct on imaging. A dilated pancreatic duct?can arise from benign or malignant disease or can be a variant of normal in the right clinical setting. Dilated pancreatic ducts can arise from solid or cystic pancreatic tumors and, in the right setting, may warrant endoscopic evaluation and therapy, including stenting and dilation. Typically you see isolated dilated pancreatic duct without dilation of the common bile duct in the setting of pancreatic divisum, isolated pancreatic stone, lesion at the ampulla. It can be early sign of malignancy in the setting of double duct sign. There is no presence of nodules seen in around the pancreas which would be a bad sign. She does need an MRCP and a CA 19-9 along with celiac studies, IgG4, triglyceride level. 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 She needs a biopsy and stenting. Typically I told her that she should be a surgical candidate due to no local or adjacent lymphadenopathy that was seen on MRI or CT scan. I would like to her to get an EUS guided biopsy and possibly avoid instrumentation in the pancreas as she may be able to have just a local pancreatectomy with hepaticojejunostomy. Her daughter on the phone was okay with this. Therefore, she should probably go to [facility] where her daughter works. I told her if she cannot tolerate a diet she can be discharged and go to [facility] for evaluation by pancreatobiliary surgeon. Charges/Coding Visit Charges Inpatient E&M: 12511 Subs Hosp L3
[2024-03-23] MEDS: MELATONIN 3 MG TABLET PO (22:12)
[2024-03-24] MEDS: Lactated Ringers 1,000 ML 75 ML IV (00:21)
[2024-03-24 03:00] VITALS: BP 128/66; PULSE 43; RESP 15; TEMP 36.7; O2SAT 97
[2024-03-24] MEDS: Piperacil/Tazobactam 3.375 GM in 0.9% Normal Saline (50mL MB+) 50 ML IV (05:32)
[2024-03-24 07:00] VITALS: O2SAT 98
[2024-03-24 07:05] LABS: Absolute Lymphocyte Count 1.04 X10^3/uL (0.83-4.51); Absolute Neutrophil Count 3.3 X10^3/uL (2.0-7.7); Basophil# 0.03 X10^3/uL; Basophil% 0.6 % (0-1); Eosinophil# 0.17 X10^3/uL; Eosinophils% 3.4 % (0-5); Hematocrit 40.7 % (37-47); Hemoglobin 13.2 g/dL (12.0-15.0); Lymphocyte # 1.04 X10^3/ul (0.83-4.51); Lymphocyte % 20.6 % (19-41); Mean Corp Hgb Conc 32.4 g/dL (32-36); Mean Corpuscular Hgb 29.5 pg (27.0-32.0); Mean Corpuscular Volume 91.1 fL (81-99); Mean Platelet Vol. 11.8 fl (6.2-12.0); Monocyte# 0.46 X10^3/uL; Monocyte% 9.1 % (0-10); NRBC Flagged by Analyzer 0 % (0-5); Neutrophil # 3.34 X10^3/uL (2.7-7.7); Neutrophil % 66.1 % (47-70); Platelet Count 177 K/mm3 (150-450); RBC Distribution Width CV 12.1 % (11.6-14.6); RBC Distribution Width SD 40.2 fl (35.1-43.9); Red Blood Count 4.47 M/mm3 (4.2-5.4); White Blood Count 5.1 K/mm3 (4.4-11.0)
[2024-03-24 07:44] LABS: ALB/GLOB Ratio 0.9 RATIO (0.9-2.4); AST(SGOT) 18 U/L (15-37); Alanine Aminotransfer ALT/SGPT 20 U/L (13-56); Albumin, Serum 3.1 g/dL (3.2-5.0); Alkaline Phosphatase 54 U/L (45-117); Anion Gap 3 (5-15); BUN 12 mg/dL (7-18); BUN/Creat Ratio 16.2 RATIO (10-20); Calcium,Total 8.8 mg/dL (8.5-10.1); Chloride 113 mmol/L (98-107); Creatinine, Serum 0.74 mg/dL (0.55-1.02); EST Glomerular Filtration Rate 86 mL/min (>60); Est Glom Filt Rate - Afr Amer 103 mL/min (>60); Estimated Creatinine Clearance 68.55 ml/min; Globulin 3.5 g/dL (2.2-4.2); Glucose 90 mg/dL (74-106); Potassium 3.6 mmol/L (3.5-5.1); Protein, Total 6.6 g/dL (6.4-8.2); Sodium Level 142 mmol/L (136-145)
[2024-03-24 08:00] VITALS: BP 148/64; PULSE 52; RESP 18; TEMP 36.8; O2SAT 98
--- NOTE | 2024-03-24 08:21 | DCINST_ITS ---
Discharge Instructions Diet Discharge Diet: Low fat / Low cholesterol Activity Discharge Activity: Return to Normal Activity Dressing / Incision Call your doctor if you observe: Fever of 101 or Higher, Shortness of breath, Dizziness, Fainting spells, Swelling in the ankles, Chest pain and Increased palpitations (irregular heartbeat) Follow Up Care Test Results: Test results from this visit will be discussed in further detail at your follow- up appointment, if applicable. Discharge Plan Admission Admit Date/Time: 03/22/24 14:33 Attending Provider: Hugo Marshall Primary Care Provider: Arias Vaughn Consulting Providers: Praneeth Paredes Instructions Patient Instructions: Pancreatic Pseudocysts, Pancreatitis Acute Dc, ED Pancreatitis Discharge Orders/Prescriptions Prescriptions: Continued estradiol [Yuvafem] 10 mcg tablet 10 mcg vaginal .3XW hydrochlorothiazide 25 mg tablet 25 mg PO DAILY Qty: 90 3RF lisinopril 20 mg tablet 20 mg PO DAILY Qty: 90 3RF amlodipine 5 mg tablet 5 mg PO DAILY Qty: 90 3RF Referrals / Follow Up: Arias Vaughn MD [Primary Care Provider] - Within 1 Week Disposition Disposition (needs filled in before D/C Order can be placed): Home, Self Care
[2024-03-24 09:00] VITALS: RESP 16
[2024-03-24] MEDS: hydroCHLOROthiazide 25 MG Tablet PO (10:58)
[2024-03-24] MEDS: Lisinopril 20 MG Tablet PO (10:58)
[2024-03-24] MEDS: amLODIPine 5 MG Tablet PO (10:58)
[2024-03-24] MEDS: Senna Tablet 1 TABLET PO (10:59)
[2024-03-24 12:36] VITALS: BP 142/70; PULSE 48; RESP 18; TEMP 36.9; O2SAT 99
--- NOTE | 2024-03-24 14:55 | DS.PCM_ITS ---
Providers Date of Admission: 03/22/24 Primary Care Physician: Dr. Arias Vaughn MD Consultations 03/22/24 16:59 Consult: Gastroenterology Routine Consulting Provider: [facility] Reason for Consult: pancreatitis, MRCP pending, concern for gallstone panc EMERGENT Consult: No MD Notified: Yes Date Notified: 03/22/24 Time Notified: 16:48 Method of Notification: Text Reason For Visit: PANCREATITIS Diagnosis Discharge Diagnosis (1) Pancreatitis: Status: Acute Code(s): K85.90 - Acute pancreatitis without necrosis or infection, unspecified Medications at Discharge Home Medications hydrochlorothiazide 25 mg tablet 25 mg PO DAILY #90 tabs 06/23/23 lisinopril 20 mg tablet 20 mg PO DAILY #90 tabs 08/22/23 amlodipine 5 mg tablet 5 mg PO DAILY #90 tabs 08/30/23 estradiol 10 mcg vaginal tablet (Yuvafem) 10 mcg vaginal .3XW 03/22/24 Hospital Course Operations None Procedures None Summary of Care Provided Minutes Spent on Discharge: 36 Hospital Course: Per HPI: BENI GREENWOOD, is a 58 F who presented to [facility] ED on 03/22/2024 with worsening abdominal pain. Was found on labs to have a significantly elevated lipase and CT abdomen pelvis showed a mildly dilated pancreatic duct concerning for pancreatitis. Hospitalist was contacted for admission. Saw patient at bedside in the ED, present. Patient was sitting up comfortably in bed, conversing normally, in no acute distress. She reported very mild abdominal pain currently, moderately improved from when she arrived. She states the pain medication was helpful in relieving her pain. Patient lives at home with her and is generally in good health. She has no previous history of pancreatitis. Has no known history of cholelithiasis. However, her mother and sister both had gallstones and had their gallbladders removed. Patient is a vegan and generally eats very healthy. She drinks occasionally on the weekends but not regularly. Patient states she has intermittently noticed some abdominal pain/cramping over the past several weeks. The pain has generally been intermittent and will go away on its own. She has not been able to identify any foods or drink that seem to coincide with the pain. She states that this pain has now seem to last for a few days. The pain is primarily in the epigastric to left upper quadrants. Aside from the pain she denies any other significant symptoms. Denies any fevers, chills, nausea, vomiting, diarrhea. Has been having fairly normal bowel movements. Vitals in ED notable for borderline sinus bradycardia, mild hypertension, otherwise afebrile and satting well on room air. Labs notable for WBC count 6, hemoglobin 15, platelets 216, potassium 3.4, BMP otherwise benign, LFTs normal. Lipase 2170. Total cholesterol 191, LDL 116, HDL 62, triglycerides 80. Troponin 65, repeat pending. CT abdomen pelvis showed mildly dilated pancreatic duct down to the level of the ampulla Vater, no pancreatic masses seen, normal liver, normal gallbladder and extrahepatic biliary system, moderate amount of fecal material seen in colon. Chest x-ray was unremarkable. Patient will be admitted for further management. Hospital Course: 1. Acute pancreatitis secondary to concern for possible malignant stricture? 58-year-old female presented to the hospital with several days of abdominal pain, she woke up Tuesday evening from sleep due to epigastric abdominal pain, she was found to have a lipase over [address] scan obtained in the ER was not significant for pancreatic mass or peripancreatic stranding. She did have fairly significant and quick improvement in her abdominal pain however an MRCP demonstrated pancreatic ductal dilatation in the body and the tail of the pancreas with narrowing of the distal pancreatic duct with an 8 mm round dilated area at the transition point. There is concern for an extrinsic compression from pancreatitis or pancreatic mass. Gastroenterology was consulted and felt that as the imaging was fairly benign surrounding the head of the pancreas that she would be an excellent surgical candidate and did not want to proceed with a stent at this institution if she could have fairly definitive intervention at a higher level of care. Her daughter does work for the [facility]. She did tolerated diet yesterday evening and this morning without any significant pain and she does not want to be on narcotics. I discussed with her the possibility for discharge and she expressed understanding of the risk benefits of going home and would like to go home today. She and her daughter are working on finding a specialist at the [facility] to definitively treat this pancreatic ductal stricture. Of note tumor markers are pending as are a full array of autoimmune labs and viral serologies. 2. Essential HTN is a chronic medical condition which complicates her care. Her home medications were continued where appropriate. Physical Exam Narrative General: Alert, Oriented x3, Cooperative, No apparent distress HEENT: Atraumatic, PERRLA, EOMI, Normocephalic Oral: Moist Mucosa Neck: Supple, No JVD Lungs: Clear to auscultation, Normal air movement, No rhonchi, No wheeze, No rales Cardiovascular: Regular rate, Regular Rhythm, Normal S1, Normal S2, No murmurs Abdomen: Soft, epigastric tenderness, Non-Distended, No Hepato-splenomegaly Extremities: No edema, Capillary Refill Less than 3 Seconds Skin: No rashes, No breakdown Musculoskeletal: No Tenderness to Palpation of Joints or Extremities Neurological: No focal neurological deficits, Motor Exam 5/5 strength throughout, Sensory exam intact to light touch and pain Psych/Mental Status: Normal Affect, Appropriate Weight / BMI Weight Weight: 131 lb 6.328 oz Body Mass Index (BMI) 23.3 ABG / Lab / Microbiology Data 03/24/24 06:24 03/24/24 06:24 Laboratory: Laboratory Results - last 24 hr 03/24/24 06:24: WBC 5.1, RBC 4.47, Hgb 13.2, Hct 40.7, MCV 91.1, MCH 29.5, MCHC 32.4, RDW Std Deviation 40.2, RDW Coeff of Dexter 12.1, Plt Count 177, MPV 11.8, Immature Gran % (Auto) 0.200, Neut % (Auto) 66.1, Lymph % (Auto) 20.6, [place] % (Auto) 9.1, Eos % (Auto) 3.4, Baso % (Auto) 0.6, Absolute Neuts (auto) 3.3, Absolute Lymphs (auto) 1.04, Nucleated RBC % 0, Sodium 142, Potassium 3.6, Chloride 113 H, Carbon Dioxide 26.0, Anion Gap 3 L, BUN 12, Creatinine 0.74, Es naren Creat Clear Calc 68.55, Est GFR (MDRD) Af Amer 103, Est GFR (MDRD) Non-Af 86, BUN/Creatinine Ratio 16.2, Glucose 90, Calcium 8.8, Total Bilirubin 0.90, AST 18, ALT 20, Alkaline Phosphatase 54, Total Protein 6.6, Albumin 3.1 L, Globulin 3.5, Albumin/Globulin Ratio 0.9 D/C Instructions Discharge Diet: Low fat / Low cholesterol Call your doctor if you observe: Fever of 101 or Higher, Shortness of breath, Dizziness, Fainting spells, Swelling in the ankles, Chest pain and Increased pal pitations (irregular heartbeat) Meaningful Use Info Meaningful Use Meaningful Use Diagnoses (Choose all that apply): None applicable Ischemic Stroke Statin Dosing Therapy Reference: STATIN DOSE THERAPY REFERENCE: * Patients > 75 years receive moderate or high dose statin therapy. * Patients 75 years or YOUNGER should receive HIGH intensity statin dose unless contraindicated. You will be required to document reason for non-treatment if statin daily dose does not meet guidelines. HIGH DOSE STATIN THERAPY DAILY Atorvastatin > than or = to 40 mg Rosuvastatin > than or = to 20 mg Amlodipine + Atorvastatin > than or = to 2.5/40 mg Ezetimibe + Simvastatin 10/80 mg Simvastatin 80mg Discharge Plan Admission Admit Date/Time: 03/22/24 14:33 Attending Provider: Hugo Marshall Primary Care Provider: Arias Vaughn Consulting Providers: Praneeth Paredes Instructions Patient Instructions: Pancreatic Pseudocysts, Pancreatitis Acute Dc, ED Pancreatitis Discharge Orders/Prescriptions Prescriptions: Continued estradiol [Yuvafem] 10 mcg tablet 10 mcg vaginal .3XW hydrochlorothiazide 25 mg tablet 25 mg PO DAILY Qty: 90 3RF lisinopril 20 mg tablet 20 mg PO DAILY Qty: 90 3RF amlodipine 5 mg tablet 5 mg PO DAILY Qty: 90 3RF Referrals / Follow Up: Arias Vaughn MD [Primary Care Provider] - Within 1 Week Disposition Disposition (needs filled in before D/C Order can be placed): Home, Self Care Charges/Coding Visit Charges Inpatient E&M: 89673 Disch Hosp >30min
[2024-03-26 13:07] LABS: Anti-Centromere B Ab <0.2 AI (0.0-0.9); Anti-Chromatin <0.2 AI (0.0-0.9); Anti-Jo <0.2 AI (0.0-0.9); Anti-Scleroderma-70 AB <0.2 AI (0.0-0.9); Anti-dsDNA Ab 1 IU/mL (0-9); RNP Ab <0.2 AI (0.0-0.9); SJOGREN'S Anti-SS-A test < 0.2 AI (0.0-0.9); SJOGREN'S Anti-SS-B test < 0.2 AI (0.0-0.9); Smith Ab <0.2 AI (0.0-0.9)
[2024-03-26 17:07] LABS: AFP, Tumor Marker 3.1 ng/mL (0.0-9.2); Albumin 3.6 g/dL (2.9-4.4); Alpha-1-Globulins 0.2 g/dL (0.0-0.4); Alpha-2-Globulins 0.7 g/dL (0.4-1.0); CMV Acute Antibody IgM < 30.0 AU/mL (0.0-29.9); Carbohydrate AG 19-9 36 U/mL (0-35); Carcinoembryonic Antigen 1.1 ng/mL (0.0-4.7); Cytoplasmic Ab (C-ANCA) <1:20 titer (Neg:<1:20); Deamidated Gliadin IgA 4 units (0-19); Deamidated Gliadin IgG 3 units (0-19); EBV Acute VCA IgM < 36.0 U/mL (0.0-35.9); Endomysial Antibody IgA Negative (Negative); IgG, Quant 1129 mg/dL (586-1602); Immunoglobulin A 211 mg/dL (87-352); Immunoglobulin G, Subclass 1 506 mg/dL (248-810); Immunoglobulin G, Subclass 2 316 mg/dL (130-555); Immunoglobulin G, Subclass 3 61 mg/dL (15-102); Immunoglobulin G, Subclass 4 88 mg/dL (2-96); Immunoglobulin M 68 mg/dL (26-217); PROEL- TOTAL PROTEIN 6.6 g/dL (6.0-8.5); Perinuclear Ab (P-ANCA) <1:20 titer (Neg:<1:20); t-Transglutaminase IgA <2 U/mL (0-3)
== END 2024-03-24 12:30 | disposition home or self-care (01) | DRG 435 ==
LOC: ED 12:09 → MS3 16:40
PROVIDERS: Internal Medicine Gastroenterology; Admitting Provider Hospitalist; Emergency Provider Student in an Organized Health Care Education/Training Program; PCP Family Medicine; Visit Provider Family Medicine
DX: C25.0 Malignant neoplasm of head of pancreas (principal); K85.91 Acute pancreatitis with uninfected necrosis, unspecified; K83.1 Obstruction of bile duct; I10 Essential (primary) hypertension; K86.89 Other specified diseases of pancreas; R79.89 Other specified abnormal findings of blood chemistry; Z79.899 Other long term (current) drug therapy
CPT/HCPCS: 36415; 71045; 74177; 74181; 80053; 80061; 82105; 82378; 82728; 82784; 82787; 83516; 83540; 83550; 83615; 83690; 83735; 84165; 84478; 84484; 85025; 85027; 86225; 86235; 86255; 86256; 86301; 86334; 86645; 86664; 86665; 93005; 94668; 99284; J7030; J7050; J7120; Q9967; A4216

== ENCOUNTER → 2025-02-12 | Outpatient (CLI) | payer OTHER, SELFPAY ==
[2025-02-12 09:38] LABS: Absolute Lymphocyte Count 1.31 X10^3/uL (0.83-4.51); Absolute Neutrophil Count 2.6 X10^3/uL (2.0-7.7); Basophil# 0.03 X10^3/uL; Basophil% 0.7 % (0-1); Eosinophil# 0.07 X10^3/uL; Eosinophils% 1.6 % (0-5); Hematocrit 45.6 % (37-47); Hemoglobin 15.4 g/dL (12.0-15.0); Lymphocyte # 1.31 X10^3/ul (0.83-4.51); Lymphocyte % 30.1 % (19-41); Mean Corp Hgb Conc 33.8 g/dL (32-36); Mean Corpuscular Hgb 30.4 pg (27.0-32.0); Mean Corpuscular Volume 89.9 fL (81-99); Mean Platelet Vol. 11.6 fl (6.2-12.0); Monocyte# 0.34 X10^3/uL; Monocyte% 7.8 % (0-10); NRBC Flagged by Analyzer 0 % (0-5); Neutrophil # 2.59 X10^3/uL (2.7-7.7); Neutrophil % 59.6 % (47-70); Platelet Count 199 K/mm3 (150-450); RBC Distribution Width CV 12.6 % (11.6-14.6); RBC Distribution Width SD 41.2 fl (35.1-43.9); Red Blood Count 5.07 M/mm3 (4.2-5.4); White Blood Count 4.4 K/mm3 (4.4-11.0)
[2025-02-12 10:24] LABS: AST(SGOT) 21 U/L (<=31); Alanine Aminotransfer ALT/SGPT 13 U/L (<=34); Albumin, Serum 4.6 g/dL (3.5-5.0); Alkaline Phosphatase 100 U/L (35-104); Anion Gap 12 (5-15); BUN 16 mg/dL (4-19); BUN/Creat Ratio 19.4 RATIO (10-20); Bilirubin, Direct 0.22 mg/dL (0.00-0.30); Calcium,Total 9.8 mg/dL (7.6-11.0); Carbon Dioxide 24.2 mmol/L (21.0-32.0); Chloride 106 mmol/L (98-108); Cholesterol 201 mg/dL (<=200); Creatinine, Serum 0.85 mg/dL (0.70-1.20); EST Glomerular Filtration Rate 79 (>60); Globulin 3.3 g/dL (2.2-4.2); Glucose 94 mg/dL (70-99); High Density Lipoprotein 70 mg/dL; Low Density Lipoprotein Calc. 119 mg/dL; Magnesium 2.4 mg/dL (1.5-2.2); Protein, Total 7.8 g/dL (5.9-8.4); Sodium Level 143 mmol/L (133-145); Total Bilirubin 0.52 mg/dL (0.00-1.30); Triglycerides 64 mg/dL; Very Low Density Lipoprotein 13 mg/dL (5-40); cholesterol:hdl ratio screen 2.89
== END | disposition home or self-care (01) ==
LOC: LAB 08:52
PROVIDERS: Referring Provider Internal Medicine Cardiovascular Disease; Visit Provider Internal Medicine Cardiovascular Disease
DX: I10 Essential (primary) hypertension (principal)
CPT/HCPCS: 36415; 80048; 80061; 80076; 83735; 84443; 85025